=== PATIENT | male | born 1955 | race Caucasian/White ===

== ENCOUNTER 2020-06-24 20:05 | Emergency (ER) | payer OTHER ==
[~2020-06-24] VITALS: Ht 185.4 cm; Wt 86.2 kg
[2020-06-24 21:09] LABS: HEMATOCRIT 35.7 % (42.0-52.0); HEMOGLOBIN 11.8 gm/dL (14.0-18.0); MCH 29.5 pg (26.0-34.0); MCV 89.2 fL (80.0-100.0); MPV 6.8 fl. (7.2-11.1); NUCLEATED RBCS 0 /100WBC; PLATELET COUNT* 212 thou/uL (150-400); RBC 4.01 mil/uL (4.50-6.00); RDW-CV 15.5 % (10.5-14.5); WBC 15.1 thou/uL (4.0-11.0)
[2020-06-24 21:20] LABS: CALCIUM 8.8 mg/dL (8.5-10.1)
[2020-06-24 21:24] LABS: ALBUMIN 3.6 g/dL (3.4-5.0); APTT 22.1 Seconds (25.0-31.3); PROTIME 10.3 Seconds (9.20-11.50); TOTAL BILIRUBIN 1.8 mg/dL (<0.1-1.0); TOTAL PROTEIN 7.7 g/dL (6.4-8.2)
[2020-06-24 22:12] LABS: ABSOLUTE LYMPHOCYTES 1.1 thou/uL (0.8-5.3); ABSOLUTE MONOCYTES 1.1 thou/uL (0.0-1.2); PLATELET ESTIMATE ADEQUATE
[2020-06-24 22:13] LABS: CLUMPED PLTS FEW; TOXIC GRANULATION 1+
[2020-06-24 23:58] LABS: URINE BLOOD NEGATIVE (Negative); URINE CLARITY CLEAR; URINE COLOR YELLOW; URINE GLUCOSE-RANDOM NEGATIVE (Negative); URINE KETONES 2+ (Negative); URINE LEUKOCYTES-REFLEX NEGATIVE (Negative); URINE NITRITE-REFLEX NEGATIVE (Negative); URINE PROTEIN TRACE (Negative); URINE SPECIFIC GRAVITY >= 1.030 (1.005-1.030)
[2020-06-25 00:01] LABS: ICTOTEST (BILI CONFIRMATORY) Negative (Negative); URINE BILIRUBIN 1+ (Negative)
[2020-06-25 00:06] LABS: AMP/METHAMP POSITIVE (Negative); BARBITURATES Negative (Negative); BENZODIAZEPINES Negative (Negative); COCAINE Negative (Negative); METHADONE Negative (Negative); OPIATES Negative (Negative); PCP Negative (Negative); THC Negative (Negative)
[2020-06-25] MEDS ORDERED: ZPAK PO (03:17)
[2020-06-25 06:00] VITALS: BP 152/71
--- NOTE | 2020-06-25 09:53 | EKG ---
[place] [address] ELECTROCARDIOGRAM REPORT Name: LORENZO MARTE Room: 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 : 1955 Requested By: Doris Smith Order Number: [id number] MD: Alok Avalos Measurements Intervals [place] Rate: 97 P: 61 [place]: 146 QRS: 79 QRSD: 107 T: 68 QT: 373 QTc: 474 Interpretive Statements Sinus rhythm Low voltage, extremity leads Probable anteroseptal infarct, old No previous ECG available for comparison Electronically Signed On 06-25-2020 9:52:58 CDT by Alok Avalos [email or web address] <ELECTRONICALLY SIGNED> By: Alok Avalos MD, [facility] 06/25/20951 19 19 Alok Avalos MD, [facility] /EPI
[2020-06-25] MEDS ORDERED: CELEXA 10 MG TA10 M1 PO (20:32)
== END 2020-06-25 06:00 | disposition home or self-care (01) ==
LOC: M.ERS 20:05
PROVIDERS: Personal Emergency Response Attendant
DX: J18.8 Other pneumonia, unspecified organism (principal); F10.129 Alcohol abuse with intoxication, unspecified; Y90.5 Blood alcohol level of 100-119 mg/100 ml; Z20.822 Contact with and (suspected) exposure to COVID-19; F17.210 Nicotine dependence, cigarettes, uncomplicated

== ENCOUNTER 2020-07-01 18:57 | Emergency (ER) | payer OTHER ==
[~2020-07-01] VITALS: Ht 188 cm; Wt 102.1 kg
[~2020-07-01 18:57] MED LIST: CELEXA 10 MG TA10 M1 PO; ZPAK PO
[2020-07-01 20:02] LABS: ABSOLUTE BASOPHILS 0.1 thou/uL (0.0-0.2); ABSOLUTE EOSINOPHILS 0.2 thou/uL (0.0-0.7); ABSOLUTE LYMPHOCYTES 1.6 thou/uL (0.8-5.3); ABSOLUTE MONOCYTES 0.5 thou/uL (0.0-1.2); ABSOLUTE NEUTROPHILS 3.4 thou/uL (1.6-8.1); BASOPHILS 1.3 %; EOSINOPHILS 3.6 %; HEMATOCRIT 33.3 % (42.0-52.0); HEMOGLOBIN 11.1 gm/dL (14.0-18.0); LYMPHOCYTES 27.9 %; MCH 30.4 pg (26.0-34.0); MCHC 33.3 g/dL (28.0-37.0); MCV 91.2 fL (80.0-100.0); MONOCYTES 9.3 %; MPV 6.7 fl. (7.2-11.1); NUCLEATED RBCS 0 /100WBC; PLATELET COUNT* 262 thou/uL (150-400); POLYS 57.9 %; RBC 3.66 mil/uL (4.50-6.00); RDW-CV 16.1 % (10.5-14.5); WBC 5.9 thou/uL (4.0-11.0)
[2020-07-01 20:10] LABS: CALCIUM 8.3 mg/dL (8.5-10.1); CREATININE 0.7 mg/dL (0.6-1.3); POTASSIUM 3.3 mmol/L (3.5-5.1)
[2020-07-01 20:11] LABS: PROTIME 10.3 Seconds (9.20-11.50)
[2020-07-01 20:20] LABS: TOTAL BILIRUBIN 0.2 mg/dL (<0.1-1.0); TOTAL PROTEIN 6.7 g/dL (6.4-8.2)
[2020-07-01 22:00] LABS: URINE BILIRUBIN NEGATIVE (Negative); URINE BLOOD NEGATIVE (Negative); URINE CLARITY CLEAR; URINE COLOR YELLOW; URINE GLUCOSE-RANDOM NEGATIVE (Negative); URINE KETONES NEGATIVE (Negative); URINE LEUKOCYTES-REFLEX NEGATIVE (Negative); URINE NITRITE-REFLEX NEGATIVE (Negative); URINE PROTEIN NEGATIVE (Negative); URINE SPECIFIC GRAVITY 1.015 (1.005-1.030); URINE UROBILINOGEN 0.2 E.U./dl (0.2-1.0)
[2020-07-02] MEDS ORDERED: CARAFATE 1 GM TA1 GM PO (03:13)
[2020-07-02] MEDS ORDERED: OMEPRAZOLE40 MG PO (03:13)
[2020-07-02 03:31] VITALS: BP 178/96
--- NOTE | 2020-07-02 15:26 | EKG ---
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: : 1955 Requested By: Sowmya Hartman Order Number: [id number] MD: Trace Canales Measurements Intervals [place] Rate: 76 P: 107 [place]: 172 QRS: 81 QRSD: 115 T: 113 QT: 395 QTc: 445 Interpretive Statements Atrial fibrillation with a moderate ventricular response Nonspecific intraventricular conduction delay Low voltage, extremity leads Nonspecific T abnormalities, lateral leads Compared to ECG 06/25/2020 20:27:05 Intraventricular conduction delay now present T-wave abnormality now present Sinus rhythm no longer present ST (T wave) deviation no longer present Electronically Signed On 07-02-2020 15:26:19 CDT by Trace Canales [email or web address] <ELECTRONICALLY SIGNED> By: Trace Canales MD, [facility] 07/02/20 1526 58 58 Trace Canales MD, [facility] /EPI
--- NOTE | 2020-07-02 15:27 | EKG ---
[place] [address] ELECTROCARDIOGRAM REPORT Name: LORENZO MARTE Room: [facility]#: [id number] Admission: 07/01/20 Attend Phys: Discharge: 07/02/20 Date of : 59 Date of Service: 07/01/20 2326 Report #: [id number] THIS REPORT FOR: //name// [facility] ED Test Date: 2020-07-01 Test Time: 23:26:34 Pat Name: LORENZO MARTE Department: Room: Gender: [place]: MS : 1955 Requested By: Sowmya Hartman Order Number: [id number] Janie MD: Trace Canales Measurements Intervals [place] Rate: 74 P: 42 [place]: 154 QRS: -5 QRSD: 100 T: 64 QT: 422 QTc: 469 Interpretive Statements Sinus rhythm Probable anteroseptal infarct, old Compared to ECG 07/01/2020 18:59:22 Myocardial infarct finding now present Sinus arrhythmia no longer present Intraventricular conduction delay no longer present T-wave abnormality no longer present Electronically Signed On 07-02-2020 15:27:25 CDT by Trace Canales [email or web address] <ELECTRONICALLY SIGNED> By: Trace Canales MD, [facility] 07/02/20 1527 2326 2326 Trace Canales MD, [facility] /EPI
== END 2020-07-02 03:32 | disposition home or self-care (01) ==
LOC: M.ERS 18:57
PROVIDERS: Emergency Medicine
DX: K29.20 Alcoholic gastritis without bleeding (principal)

== ENCOUNTER 2020-07-21 13:51 | Emergency (ER) | payer OTHER ==
[~2020-07-21] VITALS: Ht 182.9 cm; Wt 86.2 kg
--- NOTE | ~2020-07-21 | EMS ---
[facility] [address] [place] [address] EMS Patient Care Report Name: LORENZO MARTE [id number] Admission: Attend Phys: Discharge: Date of : 59 Report #: [id number] THIS REPORT FOR: //name// Report Transmitted: 07/21/2020 13:18 EMS Care Summary [facility] Incident [id number] @ 07/21/2020 13:11 Incident Location [address] [id number] Patient LORENZO MARTE Male, 64 Years 1955 Patient Address [address] [id number] Patient History Anxiety disorder, unspecified,Alcohol related disorders,Alcohol dependence, uncomplicated,Tobacco use, Patient Allergies No known allergies, Patient Medications Celexa, Chief Complaint Alcohol related symptoms Disposition Transported No Lights/[place] Reason Unknown Problem/Person Down Transported To [facility] Narrative Dispatched to address noted for a man down. [facility] en route and on scene with [employer] and [employer] at time noted. Arrived and patient near the bushes and he was resting on the ground. Patient was alert but did not appear oriented and an [facility] [address] [place] [address] EMS Patient Care Report Name: LORENZO MARTE Room: [facility]#: [id number] Admission: Attend Phys: Discharge: Date of : 59 Report #: [id number] empty bottle of Vodka was found laying near him. [employer] stated he was not able to stand or care for himself and was complaining of chest pain after they had used a sternum rub to wake him up. [employer] then stated that the patient was complaining of the chest before they arrived. Patient was helped to his feet and he could not stand on his own. Patient was sat on the stretcher and buckled in. Once in ambulance, patient stated he was familiar with [facility]. Vitals where taken with 12 lead ECG as noted. While en route, vitals where taken at time noted. No major changes noted while en route and patient slept. Radio report was given at time noted. Patient complained of a headache around the area of his abrasions to the head and then fell back asleep. Arrived and took patient to room. Patient was moved to bed and RN was given verbal report. RN signed for patient and patient care. Patient could not sign for himself. END REPORT EMT-P Rosendo Samuel Initial Vitals @13:25SpO2: 94, @13:26SpO2: 95, @13:28SpO2: 96, @13:27 @13:25P: 82,R: 16,BP: 108/51, @13:45P: 85,R: 16,BP: 110/50, @13:25GCS: 15, @13:45GCS: 15, @13:21 Assessments @13:21MENTAL:SKIN:HEENT:LUNG SOUNDS:ABDOMEN:PELVIS//GI:EXTREMITIES:PULSE:NEURO: Impression Alcohol use Procedures @13:2712-Lead ECGResponse: UnchangedSucceeded Timeline 13:11,Call Received 13:11,Dispatch Notified 13:11,Psap Call 13:11,Dispatched 13:12,En Route 13:19,On Scene 13:21,At Patient 13:21,BP: / M,PULSE: ,RR: R,SPO2: Ox,ETCO2: ,BG: ,PAIN: ,GCS: , 13:25,BP: / M,PULSE: ,RR: R,SPO2: 94 Ox,ETCO2: ,BG: ,PAIN: ,GCS: , 13:25,BP: 108/51 M,PULSE: 82,RR: 16 R,SPO2: Ox,ETCO2: ,BG: ,PAIN: ,GCS: , [place] [address] EMS Patient Care Report Name: LORENZO MARTE Room: [facility]#: [id number] Admission: Attend Phys: Discharge: Date of : 59 Report #: [id number] 13:25,BP: / M,PULSE: ,RR: R,SPO2: Ox,ETCO2: ,BG: ,PAIN: ,GCS: 15, 13:26,BP: / M,PULSE: ,RR: R,SPO2: 95 Ox,ETCO2: ,BG: ,PAIN: ,GCS: , 13:27,12-Lead ECG,Response: UnchangedSucceeded, 13:27,BP: / M,PULSE: ,RR: R,SPO2: Ox,ETCO2: ,BG: ,PAIN: ,GCS: , 13:28,BP: / M,PULSE: ,RR: R,SPO2: 96 Ox,ETCO2: ,BG: ,PAIN: ,GCS: , 13:29,Depart Scene 13:45,BP: 110/50 M,PULSE: 85,RR: 16 R,SPO2: Ox,ETCO2: ,BG: ,PAIN: ,GCS: , 13:45,BP: / M,PULSE: ,RR: R,SPO2: Ox,ETCO2: ,BG: ,PAIN: ,GCS: 15, 13:49,At Destination 13:56,Call Closed Disclaimer v1.1 Copyright 2020 [employer] This EMS Care Summary contains data elements from the applicable legal record (which may be displayed differently). It is designed to provide pertinent information for the following purposes: continuity of care, clinical quality, and state data reporting. The complete legal record is available to ED staff and administrators of the receiving hospital in [employer] Patient Tracker. All data is provided "as is."
[~2020-07-21 13:51] MED LIST changes: +CARAFATE 1 GM TA1 GM PO; +OMEPRAZOLE40 MG PO
[2020-07-21 14:12] LABS: ABSOLUTE BASOPHILS 0.1 thou/uL (0.0-0.2); ABSOLUTE EOSINOPHILS 0.2 thou/uL (0.0-0.7); ABSOLUTE LYMPHOCYTES 1.2 thou/uL (0.8-5.3); ABSOLUTE MONOCYTES 0.5 thou/uL (0.0-1.2); ABSOLUTE NEUTROPHILS 4.1 thou/uL (1.6-8.1); BASOPHILS 1.8 %; EOSINOPHILS 3.7 %; HEMATOCRIT 29.9 % (42.0-52.0); MCH 30.2 pg (26.0-34.0); MCHC 33.5 g/dL (28.0-37.0); MCV 90.3 fL (80.0-100.0); MONOCYTES 7.9 %; MPV 7.2 fl. (7.2-11.1); NUCLEATED RBCS 0 /100WBC; PLATELET COUNT* 301 thou/uL (150-400); POLYS 66.6 %; RBC 3.31 mil/uL (4.50-6.00); WBC 6.2 thou/uL (4.0-11.0)
[2020-07-21 14:19] LABS: CALCIUM 8.3 mg/dL (8.5-10.1); CREATININE 0.9 mg/dL (0.6-1.3); POTASSIUM 4.1 mmol/L (3.5-5.1)
[2020-07-21 14:23] LABS: TOTAL BILIRUBIN 0.2 mg/dL (<0.1-1.0); TOTAL PROTEIN 6.7 g/dL (6.4-8.2)
[2020-07-21 15:49] VITALS: BP 106/55
--- NOTE | 2020-07-22 11:07 | EKG ---
[place] [address] ELECTROCARDIOGRAM REPORT Name: LORENZO MARTE Room: 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 : 1955 Requested By: Zelalem Quinteros Order Number: [id number] MD: Alok Avalos Measurements Intervals [place] Rate: 64 P: 46 [place]: 151 QRS: 62 QRSD: 104 T: 56 QT: 403 QTc: 416 Interpretive Statements Sinus rhythm poor r wave progression Borderline low voltage, extremity leads Compared to ECG 07/01/2020 23:26:34 no change Electronically Signed On 07-22-2020 11:06:54 CDT by Alok Avalos [email or web address] <ELECTRONICALLY SIGNED> By: Alok Avalos MD, [facility] 07/22/20 1106 1431 1431 Alok Avalos MD, [facility] /EPI
== END 2020-07-21 16:37 | disposition left against medical advice (07) ==
LOC: M.ERS 13:51
PROVIDERS: Emergency Medicine Emergency Medical Services
DX: S00.81XA Abrasion of other part of head, initial encounter (principal); F10.129 Alcohol abuse with intoxication, unspecified; Y90.9 Presence of alcohol in blood, level not specified; X58.XXXA Exposure to other specified factors, initial encounter; Y93.89 Activity, other specified; Y92.89 Other specified places as the place of occurrence of the external cause; Y99.8 Other external cause status

== ENCOUNTER 2020-07-22 18:01 | Emergency (ER) | payer OTHER ==
[~2020-07-22] VITALS: Ht 182.9 cm; Wt 80.3 kg
[2020-07-22 18:30] LABS: ABSOLUTE BASOPHILS 0.2 thou/uL (0.0-0.2); ABSOLUTE EOSINOPHILS 0.3 thou/uL (0.0-0.7); ABSOLUTE LYMPHOCYTES 1.9 thou/uL (0.8-5.3); ABSOLUTE MONOCYTES 0.5 thou/uL (0.0-1.2); ABSOLUTE NEUTROPHILS 4.6 thou/uL (1.6-8.1); BASOPHILS 2.6 %; EOSINOPHILS 3.4 %; HEMATOCRIT 29.7 % (42.0-52.0); HEMOGLOBIN 10.1 gm/dL (14.0-18.0); LYMPHOCYTES 26.1 %; MCH 30.4 pg (26.0-34.0); MCV 89.6 fL (80.0-100.0); MONOCYTES 6.4 %; MPV 6.9 fl. (7.2-11.1); NUCLEATED RBCS 0 /100WBC; PLATELET COUNT* 376 thou/uL (150-400); POLYS 61.5 %; RBC 3.31 mil/uL (4.50-6.00); RDW-CV 15.7 % (10.5-14.5); WBC 7.4 thou/uL (4.0-11.0)
[2020-07-22 18:43] LABS: CALCIUM 8.2 mg/dL (8.5-10.1); CREATININE 0.9 mg/dL (0.6-1.3); POTASSIUM 4.2 mmol/L (3.5-5.1)
[2020-07-22 18:48] LABS: TOTAL BILIRUBIN 0.2 mg/dL (<0.1-1.0); TOTAL PROTEIN 6.6 g/dL (6.4-8.2)
[2020-07-22 18:51] LABS: ALCOHOL 247 mg/dL (<10); SALICYLATE < 2.8 mg/dL (2.8-20.0)
[2020-07-22 18:53] LABS: ACETAMINOPHEN < 2 ug/mL (10-30)
[2020-07-22 23:19] LABS: URINE BILIRUBIN NEGATIVE (Negative); URINE BLOOD NEGATIVE (Negative); URINE CLARITY CLEAR; URINE COLOR YELLOW; URINE GLUCOSE-RANDOM NEGATIVE (Negative); URINE KETONES NEGATIVE (Negative); URINE LEUKOCYTES-REFLEX NEGATIVE (Negative); URINE NITRITE-REFLEX NEGATIVE (Negative); URINE PROTEIN NEGATIVE (Negative); URINE SPECIFIC GRAVITY 1.015 (1.005-1.030); URINE UROBILINOGEN 0.2 E.U./dl (0.2-1.0)
[2020-07-22 23:26] LABS: AMP/METHAMP Negative (Negative); BARBITURATES Negative (Negative); BENZODIAZEPINES POSITIVE (Negative); COCAINE Negative (Negative); METHADONE Negative (Negative); OPIATES Negative (Negative); PCP Negative (Negative); THC Negative (Negative)
[2020-07-24 09:58] LABS: HEMATOCRIT 32.3 % (42.0-52.0); HEMOGLOBIN 10.7 gm/dL (14.0-18.0); MCH 29.7 pg (26.0-34.0); MCHC 33.1 g/dL (28.0-37.0); MCV 89.8 fL (80.0-100.0); MPV 6.7 fl. (7.2-11.1); RBC 3.59 mil/uL (4.50-6.00); WBC 6.5 thou/uL (4.0-11.0)
[2020-07-24 15:25] VITALS: BP 137/56
== END 2020-07-24 15:26 ==
LOC: M.ERS 18:01
PROVIDERS: Emergency Medicine; Emergency Medicine Emergency Medical Services
DX: F10.129 Alcohol abuse with intoxication, unspecified (principal); Y90.8 Blood alcohol level of 240 mg/100 ml or more; Z20.822 Contact with and (suspected) exposure to COVID-19; R45.851 Suicidal ideations; F17.210 Nicotine dependence, cigarettes, uncomplicated